=== PATIENT | male | born 1990 | race African-American/Black ===

== ENCOUNTER 2016-08-04 05:12 | Emergency (ER) | payer OTHER ==
[2016-08-04 05:27] VITALS: TEMP 98.6; BMI 22.1
[2016-08-04] MEDS ORDERED: SODIUM CHLORIDE 1,000 ML IV STA (05:30)
[2016-08-04] MEDS ORDERED: FAMOTIDINE 20 MG/50 ML IVPB 50 ML IVPB ONE ×2 (05:30→05:49)
[2016-08-04] MEDS ORDERED: PANTOPRAZOLE SODIUM 40 MG in SODIUM CHLORIDE 100 ML IVPB ONE (05:30)
[2016-08-04] MEDS ORDERED: ONDANSETRON 4 MG/2 ML VIAL IVPUSH ONE (05:30)
--- NOTE | 2016-08-04 05:38 | PDOC ---
History of Present Illness - General History Source: Patient Exam Limitations: No Limitations - History of Present Illness Travel History: No Initial Comments: 08/04/16 05:34 26yo Male patient with no significant past medical history presents to ED c/o 2 days of abdominal pain. + Nausea and decreased appetite. Patient states pain feels like "gas." Denies vomiting, diarrhea, fever, CP, diff breathing, or any other complaints at this time. Timing/Duration: reports: getting worse Quality: reports: moderate Abdominal Pain Onset Location: reports: LLQ Pain Radiation: reports: epigastric Activities at Onset: reports: no specific activity Treatment Prior to Arrive: worse with: analgesics, antacids, cold pack, heat, laxative, enema, other Aggravating Factors: worse with: None, Defecation, Eating, Emotional upset, Exertion, [place], Movement, Voiding, Change in position Alleviating Factors: worse with: None, Belching, Shallow Breathing, Defecation, Eating, Holding Breath, Passing Gas, Change in Position, Rest, Voiding, Vomiting <Juana Browning - Last Filed: 08/04/16 05:33> <Basilia Womack - Last Filed: 08/04/16 08:01> - General Chief Complaint: Pain Stated Complaint: STOMACH PAIN Time Seen by Provider: 08/04/16 05:20 Past History - Travel Traveled outside of the country in the last 30 days: No Close contact w/someone who was outside of country & ill: No - Past Medical History Other medical history: Pt denies - Immunization History Immunization Up to Date: Yes - Psycho/Social/Smoking Cessation Hx Anxiety: No Suicidal Ideation: No Smoking History: Current every day smoker Have you smoked in the past 12 months: Yes Number of Cigarettes Smoked Daily: 20 Information on smoking cessation initiated: No Hx Alcohol Use: No Drug/Substance Use Hx: No Substance Use Type: None <Juana Browning - Last Filed: 08/04/16 05:33> <Basilia Womack - Last Filed: 08/04/16 08:01> - Past Medical History Allergies/Adverse Reactions: Allergies Allergy/AdvReac Type Severity Reaction Status Date / Time No Known Allergies Allergy Verified 08/04/16 05:24 Home Medications: Ambulatory Orders Famotidine [Pepcid] 20 mg PO DAILY #30 tablet 08/04/16 Ondansetron [Zofran Odt -] 4 mg SL TID PRN #21 od.tablet 08/04/16 Review of Systems - Review of Systems Able to Perform ROS?: Yes Is the patient limited [place] proficient: No Constitutional: No: Chills, Fever Respiratory: No: Cough, Shortness of Breath, Stridor, Wheezing Cardiac (ROS): No: Chest Pain, Lightheadedness, Palpitations, Syncope, Chest Tightness ABD/GI: Yes: Nausea, Abdominal cramping (LLQ). No: Constipated, Diarrhea, Poor Appetite, Vomiting : No: Dysuria, Flank Pain, Hematuria, Testicular Pain Musculoskeletal: No: Back Pain Integumentary: No: Rash Neurological: No: Headache, Seizure, Unsteady Gait Psychiatric: No: Change in Appetite All Other Systems: Reviewed and Negative <Juana Browning - Last Filed: 08/04/16 05:33> *Physical Exam - Vital Signs Last Vital Signs Temp Pulse Resp BP Pulse Ox 98.6 F 88 20 113/74 100 08/04/16 05:24 08/04/16 05:24 08/04/16 05:24 08/04/16 05:24 08/04/16 05:24 - Physical Exam General Appearance: Yes: Nourished, Appropriately Dressed, Apparent Distress, Mild Distress. No: Moderate Distress, Severe Distress Neck: positive: Trachea midline, Normal Thyroid, Supple. negative: Stridor, Lymphadenopathy (R), Lymphadenopathy (L) Respiratory/Chest: positive: Lungs Clear, Normal Breath Sounds. negative: Respiratory Distress, Accessory Muscle Use, Labored Respiration, Rapid RR, Rhonchi, Stridor, Wheezing Cardiovascular: positive: Regular Rhythm, Regular Rate Gastrointestinal/Abdominal: positive: Tender, Flat, Soft, Increased Bowel Sounds , Tenderness (Lower abdomen; more pronounced to LLQ) Musculoskeletal: positive: Normal Inspection. 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, Fully Oriented, Alert, Normal Mood/ Affect, Normal Response, Motor Strength 5/5 <Juana Browning - Last Filed: 08/04/16 05:33> - Vital Signs Last Vital Signs Temp Pulse Resp BP Pulse Ox 98.6 F 88 20 113/74 100 08/04/16 05:24 08/04/16 05:24 08/04/16 05:24 08/04/16 05:24 08/04/16 05:24 <Basilia Womack - Last Filed: 08/04/16 08:01> ED Treatment Course - LABORATORY CBC & Chemistry Diagram: 08/04/16 05:45 08/04/16 05:45 - ADDITIONAL ORDERS Additional order review: Laboratory Results 08/04/16 08/04/16 08/04/16 06:20 06:20 05:45 Sodium 140 Potassium 4.0 Chloride 99 Carbon Dioxide 34 H Anion Gap 7 L BUN 8 Creatinine 0.9 Creat Clearance w eGFR > 60 Random Glucose 102 Calcium 10.0 Total Bilirubin 0.7 AST 32 D ALT 19 Alkaline Phosphatase 78 Total Protein 7.8 Albumin 4.6 Total Amylase Lipase Urine Color Ltyellow Urine Appearance Clear Urine pH 7.0 Urine Protein Negative Urine Glucose (UA) Negative Urine Ketones Negative Urine Blood Negative Urine Nitrite Negative Urine Bilirubin Negative Urine Urobilinogen Negative Ur Leukocyte Esterase Negative Opiates Screen Negative Methadone Screen Negative Barbiturate Screen Negative Phencyclidine Screen Negative Ur Amphetamines Screen Negative MDMA (Ecstasy) Screen Negative Benzodiazepines Screen Negative Cocaine Screen Negative U Marijuana (THC) Screen Positive Alcohol, Quantitative 08/04/16 08/04/16 05:45 05:45 Sodium Potassium Chloride Carbon Dioxide Anion Gap BUN Creatinine Creat Clearance w eGFR Random Glucose Calcium Total Bilirubin AST ALT Alkaline Phosphatase Total Protein Albumin Total Amylase 82 Lipase 118 Urine Color Urine Appearance Urine pH Urine Protein Urine Glucose (UA) Urine Ketones Urine Blood Urine Nitrite Urine Bilirubin Urine Urobilinogen Ur Leukocyte Esterase Opiates Screen Methadone Screen Barbiturate Screen Phencyclidine Screen Ur Amphetamines Screen MDMA (Ecstasy) Screen Benzodiazepines Screen Cocaine Screen U Marijuana (THC) Screen Alcohol, Quantitative < 5.0 08/04/16 05:45 RBC 4.87 MCV 89.7 MCHC 32.8 RDW 13.5 MPV 8.8 Neutrophils % 81.7 Lymphocytes % 11.6 D Monocytes % 5.9 Eosinophils % 0.5 Basophils % 0.3 - Medications Given in the ED: ED Medications Discontinued Medications Generic Name Dose Route Start Last Admin Trade Name Freq PRN Reason Stop Dose Admin Al Hydroxide/Mg Hydroxide 30 ml 08/04/16 06:43 08/04/16 06:57 Mylanta Oral Suspension - PO 08/04/16 06:44 30 ml ONCE ONE Administration Dicyclomine HCl 20 mg 08/04/16 06:44 08/04/16 06:57 Bentyl - PO 08/04/16 06:45 20 mg ONCE ONE Administration Pantoprazole Sodium 40 mg/ 100 mls @ 200 mls/hr 08/04/16 05:30 08/04/16 06:05 Sodium Chloride IVPB 08/04/16 05:59 200 mls/hr ONCE ONE Administration Famotidine/Sodium Chloride 50 mls @ 100 mls/hr 08/04/16 05:30 08/04/16 06:05 Pepcid 20 Mg Premixed Ivpb - IVPB 08/04/16 05:59 100 mls/hr ONCE ONE Administration Sodium Chloride 1,000 mls @ 1,000 mls/hr 08/04/16 05:30 08/04/16 06:04 Normal Saline - IV 08/04/16 06:29 1,000 mls/hr ASDIR STA Administration Ondansetron HCl 4 mg 08/04/16 05:30 08/04/16 06:05 Zofran Injection IVPUSH 08/04/16 05:31 4 mg ONCE ONE Administration <Basilia Womack - Last Filed: 08/04/16 08:01> *DC/Admit/Observation/Transfer <Juana Browning - Last Filed: 08/04/16 05:33> <Basilia Womack - Last Filed: 08/04/16 08:01> Diagnosis at time of Disposition: Abdominal pain Qualifiers: Abdominal location: epigastric Qualified Code(s): R10.13 - Epigastric pain - Prescriptions Prescriptions: Famotidine [Pepcid] 20 mg PO DAILY #30 tablet Ondansetron [Zofran Odt -] 4 mg SL TID PRN #21 od.tablet PRN Reason: Nausea - Referrals Referrals: Silas Contreras MD [Staff Physician] - Call tomorrow - Patient Instructions Printed Discharge Instructions: [place] Diet, DI for Gastritis Additional Instructions: -Rest and stay well-hydrated -Eat a bland diet (instructions enclosed) until you are feeling better -Take Pepcid as prescribed for stomach pain and Zofran as needed for nausea -Follow up with primary care (referral enclosed) -Return here if you are unable to keep down fluids, or for any other concerning symptoms
[2016-08-04] MEDS ORDERED: PANTOPRAZOLE SODIUM 100 ML IVPB ONE (05:49)
[2016-08-04] MEDS ORDERED: ONDANSETRON 4 MG/2 ML VIAL ONE (05:49)
[2016-08-04 05:57] LABS: BASOPHIL 0.3 % (0-2.0); EOSINOPHIL 0.5 % (0-4.5); MCH 29.4 pg (25.7-33.7); MCHC 32.8 g/dl (32.0-35.9); MEAN CELL VOLUME 89.7 fl (80-96); MEAN PLT VOLUME 8.8 fl (7.5-11.1); NEUTROPHILS 81.7 % (42.8-82.8); PLATELET COUNT 220 K/MM3 (134-434); RDW 13.5 % (11.9-15.9); WHITE BLOOD COUNT 11.7 K/mm3 (4.0-10.0)
[2016-08-04 06:12] LABS: AMYLASE 82 U/L (25-115)
[2016-08-04 06:18] LABS: ALBUMIN 4.6 g/dl (3.4-5.0); ALK PHOS 78 U/L (45-117); ANION GAP 7 (8-16); BILIRUBIN,TOTAL 0.7 mg/dL (0.2-1.0); CO2 34 mmol/L (21-32); COCKROFT - GAULT 101.49; CREATININE 0.9 mg/dL (0.7-1.3); GLUCOSE,RANDOM 102 mg/dL (74-106); SGOT/AST 32 U/L (15-37); SGPT/ALT 19 U/L (12-78); TOT PROT 7.8 g/dl (6.4-8.2)
[2016-08-04 06:35] LABS: URINE APPEARANCE CLEAR; URINE BILIRUBIN NEGATIVE (NEGATIVE); URINE BLOOD NEGATIVE (NEGATIVE); URINE COLOR LTYELLOW; URINE GLUCOSE (UA) NEGATIVE (NEGATIVE); URINE KETONE NEGATIVE (NEGATIVE); URINE LEUK ESTERASE NEGATIVE (NEGATIVE); URINE NITRITE NEGATIVE (NEGATIVE); URINE PROTEIN NEGATIVE (NEGATIVE); URINE UROBILINOGEN NEGATIVE E.U./dl (0.2-1.0)
[2016-08-04] MEDS ORDERED: MAG HYDROX/AL HYDROX/SIMETH 30 ML UNIT-DOSE CUP PO ONE (06:43)
[2016-08-04 06:44] LABS: URINE MARIJUANA THC POSITIVE ng/ml (CUTOFF=50)
[2016-08-04] MEDS ORDERED: DICYCLOMINE HCL 20 MG TABLET PO ONE (06:44)
[2016-08-04] MEDS ORDERED: DICYCLOMINE HCL 10 MG CAPSULE ONE (06:59)
[2016-08-04] MEDS ORDERED: MAG HYDROX/AL HYDROX/SIMETH 30 ML UNIT-DOSE CUP ONE (06:59)
--- NOTE | 2016-08-04 07:52 | PDOC ---
History of Present Illness - General Chief Complaint: Pain Stated Complaint: STOMACH PAIN Time Seen by Provider: 08/04/16 05:20 History Source: Patient Exam Limitations: No Limitations Past History - Past Medical History Allergies/Adverse Reactions: Allergies Allergy/AdvReac Type Severity Reaction Status Date / Time No Known Allergies Allergy Verified 08/04/16 05:24 Home Medications: Ambulatory Orders Famotidine [Pepcid] 20 mg PO DAILY #30 tablet 08/04/16 Ondansetron [Zofran Odt -] 4 mg SL TID PRN #21 od.tablet 08/04/16 Other medical history: Pt denies - Immunization History Immunization Up to Date: Yes - Psycho/Social/Smoking Cessation Hx Anxiety: No Suicidal Ideation: No Smoking History: Current every day smoker Have you smoked in the past 12 months: Yes Number of Cigarettes Smoked Daily: 20 Information on smoking cessation initiated: No Hx Alcohol Use: No Drug/Substance Use Hx: No Substance Use Type: None Review of Systems - Review of Systems Is the patient limited [place] proficient: No *Physical Exam - Vital Signs Last Vital Signs Temp Pulse Resp BP Pulse Ox 98.6 F 88 20 113/74 100 08/04/16 05:24 08/04/16 05:24 08/04/16 05:24 08/04/16 05:24 08/04/16 05:24 ED Treatment Course - LABORATORY CBC & Chemistry Diagram: 08/04/16 05:45 08/04/16 05:45 - ADDITIONAL ORDERS Additional order review: Laboratory Results 08/04/16 08/04/16 08/04/16 06:20 06:20 05:45 Sodium 140 Potassium 4.0 Chloride 99 Carbon Dioxide 34 H Anion Gap 7 L BUN 8 Creatinine 0.9 Creat Clearance w eGFR > 60 Random Glucose 102 Calcium 10.0 Total Bilirubin 0.7 AST 32 D ALT 19 Alkaline Phosphatase 78 Total Protein 7.8 Albumin 4.6 Total Amylase Lipase Urine Color Ltyellow Urine Appearance Clear Urine pH 7.0 Urine Protein Negative Urine Glucose (UA) Negative Urine Ketones Negative Urine Blood Negative Urine Nitrite Negative Urine Bilirubin Negative Urine Urobilinogen Negative Ur Leukocyte Esterase Negative Opiates Screen Negative Methadone Screen Negative Barbiturate Screen Negative Phencyclidine Screen Negative Ur Amphetamines Screen Negative MDMA (Ecstasy) Screen Negative Benzodiazepines Screen Negative Cocaine Screen Negative U Marijuana (THC) Screen Positive Alcohol, Quantitative 08/04/16 08/04/16 05:45 05:45 Sodium Potassium Chloride Carbon Dioxide Anion Gap BUN Creatinine Creat Clearance w eGFR Random Glucose Calcium Total Bilirubin AST ALT Alkaline Phosphatase Total Protein Albumin Total Amylase 82 Lipase 118 Urine Color Urine Appearance Urine pH Urine Protein Urine Glucose (UA) Urine Ketones Urine Blood Urine Nitrite Urine Bilirubin Urine Urobilinogen Ur Leukocyte Esterase Opiates Screen Methadone Screen Barbiturate Screen Phencyclidine Screen Ur Amphetamines Screen MDMA (Ecstasy) Screen Benzodiazepines Screen Cocaine Screen U Marijuana (THC) Screen Alcohol, Quantitative < 5.0 08/04/16 05:45 RBC 4.87 MCV 89.7 MCHC 32.8 RDW 13.5 MPV 8.8 Neutrophils % 81.7 Lymphocytes % 11.6 D Monocytes % 5.9 Eosinophils % 0.5 Basophils % 0.3 - Medications Given in the ED: ED Medications Discontinued Medications Generic Name Dose Route Start Last Admin Trade Name Freq PRN Reason Stop Dose Admin Al Hydroxide/Mg Hydroxide 30 ml 08/04/16 06:43 08/04/16 06:57 Mylanta Oral Suspension - PO 08/04/16 06:44 30 ml ONCE ONE Administration Dicyclomine HCl 20 mg 08/04/16 06:44 08/04/16 06:57 Bentyl - PO 08/04/16 06:45 20 mg ONCE ONE Administration Pantoprazole Sodium 40 mg/ 100 mls @ 200 mls/hr 08/04/16 05:30 08/04/16 06:05 Sodium Chloride IVPB 08/04/16 05:59 200 mls/hr ONCE ONE Administration Famotidine/Sodium Chloride 50 mls @ 100 mls/hr 08/04/16 05:30 08/04/16 06:05 Pepcid 20 Mg Premixed Ivpb - IVPB 08/04/16 05:59 100 mls/hr ONCE ONE Administration Sodium Chloride 1,000 mls @ 1,000 mls/hr 08/04/16 05:30 08/04/16 06:04 Normal Saline - IV 08/04/16 06:29 1,000 mls/hr ASDIR STA Administration Ondansetron HCl 4 mg 08/04/16 05:30 08/04/16 06:05 Zofran Injection IVPUSH 08/04/16 05:31 4 mg ONCE ONE Administration Medical Decision Making - Medical Decision Making 08/04/16 08:00 Signout received from KADEN Arias. Briefly, this is a healthy 26 year old male who presents for evaluation of epigastric pain and nausea. Labs are notable for mildly elevated WBC at 11.7, positive urine marijuana screen. Patient has been sleeping for several hours after receiving Pepcid, Protonix, Zofran, Maalox, and Bentyl. Repeat abdominal exam soft and non-tender. *DC/Admit/Observation/Transfer Diagnosis at time of Disposition: Abdominal pain Qualifiers: Abdominal location: epigastric Qualified Code(s): R10.13 - Epigastric pain - Discharge Dispostion Admit: No - Prescriptions Prescriptions: Famotidine [Pepcid] 20 mg PO DAILY #30 tablet Ondansetron [Zofran Odt -] 4 mg SL TID PRN #21 od.tablet PRN Reason: Nausea - Referrals Referrals: Silas Contreras MD [Staff Physician] - Call tomorrow - Patient Instructions Printed Discharge Instructions: DI for Gastritis, [place] Diet Additional Instructions: -Rest and stay well-hydrated -Eat a bland diet (instructions enclosed) until you are feeling better -Take Pepcid as prescribed for stomach pain and Zofran as needed for nausea -Follow up with primary care (referral enclosed) -Return here if you are unable to keep down fluids, or for any other concerning symptoms
[2016-08-04 08:14] VITALS: BP 122/80; PULSE 78
== END 2016-08-04 08:20 | disposition home or self-care (01) ==
LOC: JER 05:12
PROC: 3E033GC Introduction of Other Therapeutic Substance into Peripheral Vein, Percutaneous Approach (ICD-10-PCS; principal; 2016-08-04)
PROC: 3E033GC Introduction of Other Therapeutic Substance into Peripheral Vein, Percutaneous Approach (ICD-10-PCS; 2016-08-04)
PROC: 3E033GC Introduction of Other Therapeutic Substance into Peripheral Vein, Percutaneous Approach (ICD-10-PCS; 2016-08-04)
DX: R10.13 Epigastric pain (principal); F17.210 Nicotine dependence, cigarettes, uncomplicated
CPT/HCPCS: 36415; 80053; 80307; 81003; 82150; 83690; 85025; 96365; 96367; 96374; 99283-25

== ENCOUNTER 2016-08-13 16:56 | Emergency (ER) | payer OTHER ==
[2016-08-13 17:02] VITALS: BMI 21.2
[2016-08-13] MEDS ORDERED: ONDANSETRON 4 MG/2 ML VIAL ONE (18:43)
[2016-08-13] MEDS ORDERED: SODIUM CHLORIDE 0.9% 1000 ML INFUS.BAG IV ONE (18:51)
[2016-08-13] MEDS ORDERED: ONDANSETRON 4 MG/2 ML VIAL IVPUSH ONE (18:57)
[2016-08-13 19:08] LABS: BASOPHIL 0.3 % (0-2.0); EOSINOPHIL 0.1 % (0-4.5); MCH 29.8 pg (25.7-33.7); MCHC 33.5 g/dl (32.0-35.9); MEAN CELL VOLUME 88.9 fl (80-96); MEAN PLT VOLUME 8.9 fl (7.5-11.1); NEUTROPHILS 80.1 % (42.8-82.8); PLATELET COUNT 243 K/MM3 (134-434); RDW 13.5 % (11.9-15.9); WHITE BLOOD COUNT 12.3 K/mm3 (4.0-10.0)
[2016-08-13] MEDS ORDERED: FAMOTIDINE 20 MG/50 ML IVPB 50 ML IVPB ONE ×2 (19:33→19:56)
[2016-08-13] MEDS ORDERED: MAG HYDROX/AL HYDROX/SIMETH 30 ML UNIT-DOSE CUP PO ONE (19:35)
[2016-08-13 19:51] LABS: ALBUMIN 4.5 g/dl (3.4-5.0); ALK PHOS 79 U/L (45-117); ANION GAP 6 (8-16); BILIRUBIN,TOTAL 0.6 mg/dL (0.2-1.0); CALCIUM 9.7 mg/dL (8.5-10.1); CO2 34 mmol/L (21-32); COCKROFT - GAULT 97.43; CREATININE 0.9 mg/dL (0.7-1.3); GLUCOSE,RANDOM 98 mg/dL (74-106); SGOT/AST 18 U/L (15-37); SGPT/ALT 15 U/L (12-78)
[2016-08-13] MEDS ORDERED: MAG HYDROX/AL HYDROX/SIMETH 30 ML UNIT-DOSE CUP ONE (19:57)
[2016-08-13 23:16] VITALS: BP 108/66; PULSE 60; TEMP 98.4
--- NOTE | 2016-08-13 23:27 | PDOC ---
History of Present Illness - General Chief Complaint: Nausea/Vomiting Stated Complaint: NAUSEA/VOMITING History Source: Patient Exam Limitations: No Limitations - History of Present Illness Initial Comments: 08/13/16 23:22 26 yo male with nopmhx here with c/o abddominal pain n/v. pt also c/o chest pain and flank pain. states pain started 3 days ago. is generalized on initial evaluation pt is sitting on floor, initially refusing to get up for evaluation. on further discussion pt states he was seen for the same 2 weeks ago, states has never had a ct scan for this pain, no f/c no sick contacts. requesting some medication for pain. denies THC use or other drug use. no travel no fever or chills. Past History - Past Medical History Allergies/Adverse Reactions: Allergies Allergy/AdvReac Type Severity Reaction Status Date / Time No Known Allergies Allergy Verified 08/13/16 17:02 Home Medications: Ambulatory Orders Ondansetron [Ondansetron Odt] 8 mg PO TID PRN #10 tab.rapdis MDD 3 08/13/16 Other medical history: denies - Immunization History Immunization Up to Date: Yes - Psycho/Social/Smoking Cessation Hx Anxiety: No Suicidal Ideation: No Smoking History: Current every day smoker Have you smoked in the past 12 months: Yes Number of Cigarettes Smoked Daily: 10 Information on smoking cessation initiated: Yes 'Breaking Loose' booklet given: 08/13/16 Hx Alcohol Use: No Drug/Substance Use Hx: No Substance Use Type: None Review of Systems - Review of Systems Constitutional: Yes: Chills. No: Diaphoresis, Fever HEENTM: No: Eye Pain, Blurred Vision Respiratory: No: Cough, Shortness of Breath Cardiac (ROS): Yes: Chest Pain ABD/GI: Yes: Abdominal cramping, Other : No: Burning, Dysuria, Discharge All Other Systems: Reviewed and Negative *Physical Exam - Vital Signs Last Vital Signs Temp Pulse Resp BP Pulse Ox 98.4 F 60 20 108/66 99 08/13/16 23:14 08/13/16 23:14 08/13/16 23:14 08/13/16 23:14 08/13/16 23:14 - Physical Exam General Appearance: Yes: Nourished, Appropriately Dressed HEENT: negative: EOMI, KRISH, Normal ENT Inspection Neck: positive: Trachea midline. negative: Tender Respiratory/Chest: positive: Lungs Clear, Normal Breath Sounds. negative: Chest Tender, Respiratory Distress Cardiovascular: positive: Regular Rhythm, Regular Rate, S1, S2 Gastrointestinal/Abdominal: positive: Normal Bowel Sounds, Tender (llq ttp ), Flat, Soft Musculoskeletal: positive: Normal Inspection. 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 intact, Fully Oriented, Alert, Normal Mood/ Affect ED Treatment Course - LABORATORY CBC & Chemistry Diagram: 08/13/16 19:01 08/13/16 19:01 - ADDITIONAL ORDERS Additional order review: Laboratory Results 08/13/16 19:01 Sodium 140 Potassium 3.5 Chloride 100 Carbon Dioxide 34 H Anion Gap 6 L BUN 8 Creatinine 0.9 Creat Clearance w eGFR > 60 Random Glucose 98 Calcium 9.7 Total Bilirubin 0.6 AST 18 D ALT 15 D Alkaline Phosphatase 79 Total Protein 8.0 Albumin 4.5 Lipase 153 08/13/16 19:01 RBC 4.61 MCV 88.9 MCHC 33.5 RDW 13.5 MPV 8.9 Neutrophils % 80.1 Lymphocytes % 13.3 Monocytes % 6.2 Eosinophils % 0.1 Basophils % 0.3 - RADIOLOGY Radiology Studies Ordered: Category Date Time Status ABDOMEN & PELVIS CT WITH CONTR [CT] Stat CT Scan 08/13/16 20:07 Completed - Medications Given in the ED: ED Medications Discontinued Medications Generic Name Dose Route Start Last Admin Trade Name Lucien PRN Reason Stop Dose Admin Al Hydroxide/Mg Hydroxide 30 ml 08/13/16 19:35 08/13/16 19:58 Mylanta Oral Suspension - PO 08/13/16 19:36 30 ml ONCE ONE Administration Famotidine/Sodium Chloride 50 mls @ 100 mls/hr 08/13/16 19:33 08/13/16 19:57 Pepcid 20 Mg Premixed Ivpb - IVPB 08/13/16 20:02 100 mls/hr ONCE ONE Administration Ondansetron HCl 4 mg 08/13/16 18:57 08/13/16 19:00 Zofran Injection IVPUSH 08/13/16 18:58 4 mg ONCE ONE Administration Sodium Chloride 1,000 ml 08/13/16 18:51 08/13/16 18:53 Normal Saline - IV 08/13/16 18:52 1,000 ml ONCE ONE Administration Medical Decision Making - Medical Decision Making 08/13/16 23:27 pt feeling better, ct normal labs unremarkable. requesting to go home states he feels better. 08/13/16 23:52 pt became violent on discharge yelling at top of his lungs , threatening staff. given copies of test results continued to yell at staff. security called to bedside . iv removed. attempt to deescalate pt . refusing to listen. left with girlfriend under security guidance. *DC/Admit/Observation/Transfer Diagnosis at time of Disposition: Gastritis and duodenitis, Gastritis - Discharge Dispostion Admit: No - Prescriptions Prescriptions: Ondansetron [Ondansetron Odt] 8 mg PO TID PRN #10 tab.rapdis MDD 3 PRN Reason: Nausea - Patient Instructions Printed Discharge Instructions: DI for Vomiting -- Adult Additional Instructions: you should obstain from THC use as this can contribute to vomiting. take zofran 8mg every 8 hours as needed for nasuea. return for any problems or concerns. follow up with your primary doctor.
== END 2016-08-13 23:57 | disposition home or self-care (01) ==
LOC: JER 16:56
PROC: 3E033GQ Introduction of Glucarpidase into Peripheral Vein, Percutaneous Approach (ICD-10-PCS; principal; 2016-08-13)
DX: K29.70 Gastritis, unspecified, without bleeding (principal)
CPT/HCPCS: 36415; 74177-TC; 80053; 83690; 85025; 99283-25

== ENCOUNTER 2020-06-17 13:46 | Emergency (ER) | payer OTHER ==
[2020-06-17 14:03] VITALS: BP 107/75; PULSE 83; TEMP 98.9; BMI 24.0
== END 2020-06-17 14:57 | disposition home or self-care (01) ==
LOC: JERFT 13:46 → JER 13:46 → JERFT 14:57
PROC: 0HQ1XZZ Repair Face Skin, External Approach (ICD-10-PCS; principal; 2020-06-17)
DX: S01.112A Laceration without foreign body of left eyelid and periocular area, initial encounter (principal)
CPT/HCPCS: 99282-25